=== PATIENT | female | born 1985 | race American Indian/Alaskan Native ===

== ENCOUNTER 2020-04-05 21:35 | Emergency (ER) | payer OTHER ==
[2020-04-05 22:17] VITALS: BP 140/91
[2020-04-06 00:19] LABS: Bilirubin,Urine NEG (Negative); Blood,Urine SM (Negative); Color,Urine Straw (Yellow); Mucus,Urine FEW /HPF; Protein,Urine <15 mg/dL mg/dL (Negative); Urobilinogen,Urine < 2.0 mg/dL (<2.0)
[2020-04-06 00:21] LABS: HCG Qualitative,Urine Negative (Negative)
--- NOTE | 2020-04-06 02:31 | Emergency Department Report ---
<CLEO BROCK - Last Filed: 04/06/20 06:02> ED Abdominal Pain HPI - General Chief Complaint: Abdominal Pain Stated Complaint: LOWER BACK PAIN/KIDNEY STONES Time Seen by Provider: 04/06/20 00:29 Source: patient Mode of arrival: Ambulatory Limitations: No Limitations - History of Present Illness Initial Comments: 34-year-old [place] female with a past medical history involving polycystic ovaries previous history of hemorrhoid presents emergency department complaining of a few day history of right-sided back pain. She states several months ago she was diagnosed with kidney stones in her left and right kidneys and a follow- up with a urologist and was post have a stone in her right kidney removed as it was trying to advance from the kidney however she has yet to get this procedure done she reports having some nausea but no vomiting no hematuria no hematemesis no hematochezia reports no fever, chills, sweats no chest pain no palpitations. Pain is fluctuant in nature sharp achy when present. MD Complaint: flank pain Location: R flank Radiation: none Migration to: no migration Consistency: constant Improves With: nothing Worsens With: nothing - Related Data Previous Rx's Medication Instructions Recorded Last Taken Type Ketorolac [Toradol] 10 mg PO Q6H PRN #15 tablet 02/18/18 Unknown Rx oxyCODONE /ACETAMINOPHEN [Percocet 1 - 2 tab PO Q6HR PRN #20 tablet 02/18/18 Unknown Rx 5/325] Ondansetron [Zofran ODT TAB] 8 mg PO Q8HR #20 tab.rapdis 04/06/20 Unknown Rx Sulfamethoxazole/Trimethoprim 1 each PO BID #20 tablet 04/06/20 Unknown Rx [Bactrim DS TAB] Tamsulosin [Flomax] 0.4 mg PO QDAY #14 cap 04/06/20 Unknown Rx traMADoL [Ultram] 50 mg PO Q6HR PRN #20 tablet 04/06/20 Unknown Rx Allergies Allergy/AdvReac Type Severity Reaction Status Date / Time No Known Allergies Allergy Verified 02/17/18 22:16 ED Review of Systems Comment: All other systems reviewed and negative ED Past Medical Hx - Past Medical History Previous Medical History?: Yes Hx Kidney Stones: Yes Additional medical history: Scoliosis. PCOS - Surgical History Past Surgical History?: Yes Additional Surgical History: Cervial polyps 2018, hemorrhoidectomy - Social History Smoking Status: Never Smoker Substance Use Type: None - Medications Home Medications: Home Medications Medication Instructions Recorded Confirmed Last Taken Type Ketorolac [Toradol] 10 mg PO Q6H PRN #15 tablet 02/18/18 Unknown Rx oxyCODONE /ACETAMINOPHEN [Percocet 1 - 2 tab PO Q6HR PRN #20 tablet 02/18/18 Unknown Rx 5/325] Ondansetron [Zofran ODT TAB] 8 mg PO Q8HR #20 tab.rapdis 04/06/20 Unknown Rx Sulfamethoxazole/Trimethoprim 1 each PO BID #20 tablet 04/06/20 Unknown Rx [Bactrim DS TAB] Tamsulosin [Flomax] 0.4 mg PO QDAY #14 cap 04/06/20 Unknown Rx traMADoL [Ultram] 50 mg PO Q6HR PRN #20 tablet 04/06/20 Unknown Rx ED Physical Exam - General Limitations: No Limitations General appearance: alert, in no apparent distress - Head Head exam: Present: atraumatic, normocephalic - Eye Eye exam: Present: normal appearance, PERRL, EOMI Pupils: Present: normal accommodation - ENT ENT exam: Present: normal exam, normal orophraynx, mucous membranes moist, TM's normal bilaterally - Neck Neck exam: Present: normal inspection, full ROM - Respiratory Respiratory exam: Present: normal lung sounds bilaterally. Absent: respiratory distress, wheezes, rales, chest wall tenderness, accessory muscle use - Cardiovascular Cardiovascular Exam: Present: regular rate, normal rhythm. Absent: systolic murmur, diastolic murmur, rubs, gallop - GI/Abdominal GI/Abdominal exam: Present: soft, normal bowel sounds. Absent: tenderness, g uarding, hyperactive bowel sounds, hypoactive bowel sounds - Extremities Exam Extremities exam: Present: normal inspection - Back Exam Back exam: Present: normal inspection, tenderness, CVA tenderness (R), CVA tenderness (L) - Neurological Exam Neurological exam: Present: alert, oriented X3, CN II-XII intact, normal gait - Psychiatric Psychiatric exam: Present: normal affect, normal mood. Absent: flat affect, manic, homicidal ideation - Skin Skin exam: Present: warm, dry, intact, normal color. Absent: rash ED Medical Decision Making - Lab Data Result diagrams: 04/06/20 02:51 04/06/20 02:51 Lab Results 04/05/20 04/06/20 04/06/20 Range/Units Unknown 02:51 02:51 WBC 7.0 (4.5-11.0) K/mm3 RBC 3.77 (3.65-5.03) M/mm3 Hgb 11.5 (10.1-14.3) gm/dl Hct 34.6 (30.3-42.9) % MCV 92 (79-97) fl MCH 31 (28-32) pg MCHC 33 (30-34) % RDW 15.0 (13.2-15.2) % Plt Count 253 (140-440) K/mm3 Lymph % (Auto) 25.3 (13.4-35.0) % [place] % (Auto) 8.6 H (0.0-7.3) % Eos % (Auto) 2.5 (0.0-4.3) % Baso % (Auto) 0.4 (0.0-1.8) % Lymph # (Auto) 1.8 (1.2-5.4) K/mm3 [place] # (Auto) 0.6 (0.0-0.8) K/mm3 Eos # (Auto) 0.2 (0.0-0.4) K/mm3 Baso # (Auto) 0.0 (0.0-0.1) K/mm3 Seg Neutrophils % 63.2 (40.0-70.0) % Seg Neutrophils # 4.4 (1.8-7.7) K/mm3 Sodium 137 (137-145) mmol/L Potassium 4.1 (3.6-5.0) mmol/L Chloride 103.4 (98-107) mmol/L Carbon Dioxide 25 (22-30) mmol/L Anion Gap 13 mmol/L BUN 12 (7-17) mg/dL Creatinine 1.1 (0.6-1.2) mg/dL Estimated GFR > 60 ml/min BUN/Creatinine Ratio 11 % Glucose 92 (65-100) mg/dL Calcium 8.9 (8.4-10.2) mg/dL Total Bilirubin 0.30 (0.1-1.2) mg/dL AST 18 (5-40) units/L ALT 11 (7-56) units/L Alkaline Phosphatase 76 (35-129) units/L Total Protein 6.9 (6.3-8.2) g/dL Albumin 4.1 (3.9-5) g/dL Albumin/Globulin Ratio 1.5 % Urine Color Straw (Yellow) Urine Turbidity Clear (Clear) Urine pH 6.0 (5.0-7.0) Ur Specific [place] 1.018 (1.003-1.030) Urine Protein <15 mg/dl (Negative) mg/dL Urine Glucose (UA) Neg (Negative) mg/dL Urine Ketones Neg (Negative) mg/dL Urine Blood Sm (Negative) Urine Nitrite Neg (Negative) Urine Bilirubin Neg (Negative) Urine Urobilinogen < 2.0 (<2.0) mg/dL Ur Leukocyte Esterase Neg (Negative) Urine WBC (Auto) 2.0 (0.0-6.0) /HPF Urine RBC (Auto) 10.0 (0.0-6.0) /HPF U Epithel Cells (Auto) 1.0 (0-13.0) /HPF Urine Mucus Few /HPF Urine HCG, Qual Negative (Negative) - Radiology Data Radiology results: report reviewed [place] [id number] Cat Scan Report Signed Patient: CHRIS LEUNG MR#: [id number] : 1985 Acct:[id number] Age/Sex: 34 / F ADM Date: 04/05/20 Loc: ED Attending Dr: Ordering Physician: ARI GUEVARA Date of Service: 04/06/20 Procedure(s): CT abdomen pelvis wo con Accession Number(s): [id number] cc: ARI GUEVARA CT ABDOMEN AND PELVIS WITHOUT CONTRAST HISTORY: right flank pain. COMPARISON: None. TECHNIQUE: CT images of the abdomen and pelvis were obtained without administration of intravenous contrast. All CT scans at this location are performed using CT dose reduction for ALARA by means of automated exposure control. FINDINGS: Lungs/bones: Lung bases are clear. There are degenerative changes in the spine and pelvis with no acute osseous abnormality identified. Abdomen/pelvis: There is a 5 mm stone in the distal right ureter on image #151 of series #2 with moderate right-sided hydronephrosis and inflammatory stranding tracking along the right ureter and about the right kidney. There is also nonobstructive nephrolithiasis in the left kidney with largest stone aggregate measuring 5 mm in the midpole region. The liver, gallbladder, spleen, pancreas, adrenals, and proximal GI tract appear unremarkable. Urinary bladder is unremarkable. Reproductive organs are likewise unremarkable. There is no significant pelvic free fluid and there is no acute colonic abnormality this patient with diverticulosis. The appendix is normal. IMPRESSION: 1. 5 mm distal right ureteral stone with moderate hydronephrosis. Signer Name: Femi Ugarte MD Signed: 04/06/2020 3:09 AM Workstation Name: [id number] Transcribed By: JW Dictated By: Femi Ugarte MD Electronically Authenticated By: Femi Ugarte MD Signed Date/Time: 04/06/20308 DD/ 6 TD/TT: - Medical Decision Making Clinically the patient presents with nephrolithasis. IV pain medications, antiemetics, and IV fluids were given. A CT Abdomen/Pelvis was obtained for concern for a possible obstructing kidney stone and to rule out other pathologic conditions. The CT confirmed revealed a stone at the distal right ureter with mild hydro-. The patient's labs were significant for XXX. With pain medication the patient improved significantly. The patient is referred to the on-call urologist for follow up and is discharged with oral narcotics for pain control, Flomax, antiemetics, and given the following return precautions: Fever > 100.5, pain not controlled with narcotics, vomiting or any other concerns and to strain the urine ED Disposition Clinical Impression: Calculus of distal right ureter Disposition: DC-01 TO HOME OR SELFCARE Is pt being admited?: No Does the pt Need Aspirin: No Condition: Stable Instructions: Low-Purine Eating Plan, Kidney Stones, Laser Therapy for Kidney Stones, Care After, Lithotripsy, Abdominal Pain (ED) Prescriptions: Sulfamethoxazole/Trimethoprim [Bactrim DS TAB] 1 each PO BID #20 tablet Tamsulosin [Flomax] 0.4 mg PO QDAY #14 cap traMADoL [Ultram] 50 mg PO Q6HR PRN #20 tablet PRN Reason: Pain Ondansetron [Zofran ODT TAB] 8 mg PO Q8HR #20 tab.rapdis Referrals: JOHN DELA CRUZ MD [Other] - 3-5 Days [facility] [Provider Group] - 3-5 Days <RADHIKA CRUZ - Last Filed: 04/08/20 20:24> ED Review of Systems ROS: Stated complaint: LOWER BACK PAIN/KIDNEY STONES Other details as noted in HPI ED Course Vital Signs 04/05/20 22:13 Temperature 98.0 F Pulse Rate 64 Respiratory 18 Rate Blood Pressure 140/91 O2 Sat by Pulse 95 Oximetry ED Medical Decision Making - Lab Data Result diagrams: 04/06/20 02:51 04/06/20 02:51 Critical care attestation.: If time is entered above; I have spent that time in minutes in the direct care of this critically ill patient, excluding procedure time. ED Disposition Is pt being admited?: No Does the pt Need Aspirin: No
[2020-04-06 03:12] LABS: Basophils % (Auto) 0.4 % (0.0-1.8); Eosinophils # (Auto) 0.2 K/mm3 (0.0-0.4); Eosinophils % (Auto) 2.5 % (0.0-4.3); Hematocrit 34.6 % (30.3-42.9); Hemoglobin 11.5 gm/dl (10.1-14.3); Lymphocytes # (Auto) 1.8 K/mm3 (1.2-5.4); Lymphocytes % (Auto) 25.3 % (13.4-35.0); Mean Corpuscular HGB Conc 33 % (30-34); Mean Corpuscular Volume 92 fl (79-97); Monocytes # (Auto) 0.6 K/mm3 (0.0-0.8); Monocytes % (Auto) 8.6 % (0.0-7.3); Platelet Count 253 K/mm3 (140-440); Red Blood Count 3.77 M/mm3 (3.65-5.03)
--- NOTE | 2020-04-06 03:14 | Cat Scan Report ---
CT ABDOMEN AND PELVIS WITHOUT CONTRAST HISTORY: right flank pain. COMPARISON: None. TECHNIQUE: CT images of the abdomen and pelvis were obtained without administration of intravenous co ntrast. All CT scans at this location are performed using CT dose reduction for ALARA by means of au tomated exposure control. FINDINGS: Lungs/bones: Lung bases are clear. There are degenerative changes in the spine and pelvis with no ac elsy osseous abnormality identified. Abdomen/pelvis: There is a 5 mm stone in the distal right ureter on image #151 of series #2 with mod erate right-sided hydronephrosis and inflammatory stranding tracking along the right ureter and about the right kidney. There is also nonobstructive nephrolithiasis in the left kidney with largest stone aggregate measuring 5 mm in the midpole region. The liver, gallbladder, spleen, pancreas, adrenals, and proximal GI tract appear unremarkable. Urinary bladder is unremarkable. Reproductive organs are likewise unremarkable. There is no significa nt pelvic free fluid and there is no acute colonic abnormality this patient with diverticulosis. The appendix is normal. IMPRESSION: 1. 5 mm distal right ureteral stone with moderate hydronephrosis. Signer Name: Femi Ugarte MD Signed: 04/06/2020 3:09 AM Workstation Name: [email or web address]
[2020-04-06 03:31] LABS: Alanine Aminotransferase 11 units/L (7-56); Albumin 4.1 g/dL (3.9-5); BUN/Creatinine Ratio 11; Blood Urea Nitrogen 12 mg/dL (7-17); Calcium 8.9 mg/dL (8.4-10.2); Hemolysis Index 4
[2020-04-06] MEDS ORDERED: LIDOCAINE-MPF (1%) 10 MG/1 ML VIAL 5 ML INFILTRATI ONE (05:36)
== END 2020-04-06 06:14 | disposition home or self-care (01) ==
LOC: ED 21:35
DX: N20.1 Calculus of ureter (principal); Z79.899 Other long term (current) drug therapy; Z98.890 Other specified postprocedural states
CPT/HCPCS: 36415; 74176; 80053; 81001; 81025; 85025; 96372; 99284; J0696

== ENCOUNTER 2020-09-17 13:58 | Emergency (ER) | payer OTHER ==
[2020-09-17] MEDS ORDERED: ASPIRIN 325 MG TAB PO ONE (14:02)
--- NOTE | 2020-09-17 14:30 | XRay Report ---
CHEST 2 VIEWS INDICATION / CLINICAL INFORMATION: chest pain. COMPARISON: None available. FINDINGS: SUPPORT DEVICES: None. HEART / MEDIASTINUM: No significant abnormality. LUNGS / PLEURA: No significant pulmonary or pleural abnormality. No pneumothorax. ADDITIONAL FINDINGS: Mild to moderate S-shaped thoracic scoliosis. IMPRESSION: 1. No acute findings. Signer Name: Scott Bernal MD Signed: 09/17/2020 2:26 PM Workstation Name: [email or web address]
[2020-09-17 14:50] LABS: Basophils # (Auto) 0.1 K/mm3 (0.0-0.1); Basophils % (Auto) 1.3 % (0.0-1.8); Eosinophils # (Auto) 0.2 K/mm3 (0.0-0.4); Eosinophils % (Auto) 2.8 % (0.0-4.3); Hematocrit 37.3 % (30.3-42.9); Hemoglobin 12.5 gm/dl (10.1-14.3); Lymphocytes # (Auto) 1.6 K/mm3 (1.2-5.4); Lymphocytes % (Auto) 29.6 % (13.4-35.0); Mean Corpuscular HGB Conc 34 % (30-34); Mean Corpuscular Volume 92 fl (79-97); Monocytes # (Auto) 0.3 K/mm3 (0.0-0.8); Platelet Count 237 K/mm3 (140-440); Red Blood Count 4.05 M/mm3 (3.65-5.03); Red Cell Distribution Width 15.2 % (13.2-15.2)
[2020-09-17 15:13] LABS: Alanine Aminotransferase 10 units/L (7-56); Albumin 3.8 g/dL (3.9-5); BUN/Creatinine Ratio 11; Blood Urea Nitrogen 12 mg/dL (7-17); Calcium 8.8 mg/dL (8.4-10.2); Hemolysis Index 4
[2020-09-17] MEDS ORDERED: ACETAMINOPHEN 325 MG TAB PO ONE (15:40)
--- NOTE | 2020-09-17 15:43 | Event Note ---
ED Screening Note Date of service: 09/17/20 Time: 15:43 ED Screening Note: 35-year-old female with a past medical history of hypertension, hyperlipidemia, anxiety and depression presents to the ER today with complaints of chest pain. Patient states that her symptoms started abruptly about 1 hour prior to arrival. She states she was also hyperventilating. She was also having tingling in her hands and feet and in her face and was nauseous. She states that since has been in the ER, she is now having right-sided chest pain. She reports financial stress lately. Reports a history of marijuana use but denies any other illicit drug use. She states she is a social drinker. She reports a 6-hour drive back from [place] about a week ago. She denies any calf pain, lower extremity swelling, abdominal pain, cough, fever, chills or urinary symptoms. She denies any history of coronary disease and she denies ever having a stress test and she denies history of DVT or PE. She denies any lung disease This initial assessment/diagnostic orders/clinical plan/treatment(s) is/are subject to change based on patients health status, clinical progression and re- assessment by fellow clinical providers in the ED. Further treatment and workup at subsequent clinical providers discretion. Patient/guardian urged not to elope from the ED as their condition may be serious if not clinically assessed and managed. Initial orders include: Cardiac work-up
[2020-09-17] MEDS ORDERED: hydrOXYzine HCL 25 MG TAB PO ONE (17:57)
--- NOTE | 2020-09-17 18:21 | Emergency Department Report ---
ED General Adult HPI - General Chief complaint: Chest Pain Stated complaint: CHEST PAIN Time Seen by Provider: 09/17/20 15:34 Source: patient Mode of arrival: Ambulatory Limitations: No Limitations - History of Present Illness Initial comments: Patient is a 35-year-old female presents emergency room with complaints of a panic attack that occurred today. Patient states that her symptoms were chest pain to the midsternal and right chest which was described as a constriction, tingling all over, feeling like she was hyperventilating. She states that she does have a history of anxiety and is prescribed a medication that she takes as needed but is not sure what the medication is called. She states that she last took it last week. She is not currently seeing anyone for her anxiety. She denies any SI or HI. Patient states that she feels much better currently. She denies any fever, nausea, vomiting, diarrhea, cough, shortness of breath, leg sw elling, pleuritic chest pain, hemoptysis. She has a past medical history of nephrolithiasis and hypertension. No allergies to medications. Last menstrual cycle 08/16/2020. Severity scale (0 -10): 9 - Related Data Previous Rx's Medication Instructions Recorded Last Taken Type Ketorolac [Toradol] 10 mg PO Q6H PRN #15 tablet 02/18/18 Unknown Rx oxyCODONE /ACETAMINOPHEN [Percocet 1 - 2 tab PO Q6HR PRN #20 tablet 02/18/18 U nknown Rx 5/325] Ondansetron [Zofran ODT TAB] 8 mg PO Q8HR #20 tab.rapdis 04/06/20 Unknown Rx Sulfamethoxazole/Trimethoprim 1 each PO BID #20 tablet 04/06/20 Unknown Rx [Bactrim DS TAB] Tamsulosin [Flomax] 0.4 mg PO QDAY #14 cap 04/06/20 Unknown Rx traMADoL [Ultram] 50 mg PO Q6HR PRN #20 tablet 04/06/20 Unknown Rx Allergies Allergy/AdvReac Type Severity Reaction Status Date / Time No Known Allergies Allergy Verified 09/17/20 14:01 ED Review of Systems ROS: Stated complaint: CHEST PAIN Other details as noted in HPI Comment: All other systems reviewed and negative ED Past Medical Hx - Past Medical History Hx Kidney Stones: Yes Additional medical history: Scoliosis. PCOS - Surgical History Additional Surgical History: Cervial polyps 2018, hemorrhoidectomy - Social History Smoking Status: Never Smoker Substance Use Type: None - Medications Home Medications: Home Medications Medication Instructions Recorded Confirmed Last Taken Type Ketorolac [Toradol] 10 mg PO Q6H PRN #15 tablet 02/18/18 Unknown Rx oxyCODONE /ACETAMINOPHEN [Percocet 1 - 2 tab PO Q6HR PRN #20 tablet 02/18/18 Unknown Rx 5/325] Ondansetron [Zofran ODT TAB] 8 mg PO Q8HR #20 tab.rapdis 04/06/20 Unknown Rx Sulfamethoxazole/Trimethoprim 1 each PO BID #20 tablet 04/06/20 Unknown Rx [Bactrim DS TAB] Tamsulosin [Flomax] 0.4 mg PO QDAY #14 cap 04/06/20 Unknown Rx traMADoL [Ultram] 50 mg PO Q6HR PRN #20 tablet 04/06/20 Unknown Rx ED Physical Exam - General Limitations: No Limitations General appearance: alert, anxious (mildly) - Head Head exam: Present: atraumatic, normocephalic - Eye Eye exam: Present: normal appearance - ENT ENT exam: Present: mucous membranes moist - Respiratory Respiratory exam: Present: normal lung sounds bilaterally. Absent: respiratory distress, wheezes, rales, rhonchi, stridor, chest wall tenderness, accessory muscle use, decreased breath sounds, prolonged expiratory - Cardiovascular Cardiovascular Exam: Present: regular rate, normal rhythm, normal heart sounds. Absent: systolic murmur, diastolic murmur, rubs, gallop - Neurological Exam Neurological exam: Present: alert, oriented X3 - Psychiatric Psychiatric exam: Present: anxious (mildly). Absent: homicidal ideation, suicidal ideation - Skin Skin exam: Present: warm, dry, intact ED Course Vital Signs 09/17/20 09/17/20 09/17/20 13:59 16:47 17:51 Temperature 98 F Pulse Rate 93 H 65 Respiratory 30 H 18 16 Rate Blood Pressure 187/110 Blood Pressure 146/92 [Left] O2 Sat by Pulse 97 100 Oximetry 09/17/20 18:52 Temperature Pulse Rate 68 Respiratory 18 Rate Blood Pressure Blood Pressure 124/68 [Left] O2 Sat by Pulse 99 Oximetry ED Medical Decision Making - Lab Data Result diagrams: 09/17/20 14:24 09/17/20 14:24 Lab Results 09/17/20 09/17/20 09/17/20 Range/Units 14:24 14:24 15:44 WBC 5.4 (4.5-11.0) K/mm3 RBC 4.05 (3.65-5.03) M/mm3 Hgb 12.5 (10.1-14.3) gm/dl Hct 37.3 (30.3-42.9) % MCV 92 (79-97) fl MCH 31 (28-32) pg MCHC 34 (30-34) % RDW 15.2 (13.2-15.2) % Plt Count 237 (140-440) K/mm3 Lymph % (Auto) 29.6 (13.4-35.0) % [place] % (Auto) 6.0 (0.0-7.3) % Eos % (Auto) 2.8 (0.0-4.3) % Baso % (Auto) 1.3 (0.0-1.8) % Lymph # (Auto) 1.6 (1.2-5.4) K/mm3 [place] # (Auto) 0.3 (0.0-0.8) K/mm3 Eos # (Auto) 0.2 (0.0-0.4) K/mm3 Baso # (Auto) 0.1 (0.0-0.1) K/mm3 Seg Neutrophils % 60.3 (40.0-70.0) % Seg Neutrophils # 3.3 (1.8-7.7) K/mm3 Sodium 136 L (137-145) mmol/L Potassium 3.7 (3.6-5.0) mmol/L Chloride 103.6 (98-107) mmol/L Carbon Dioxide 20 L (22-30) mmol/L Anion Gap 16 mmol/L BUN 12 (7-17) mg/dL Creatinine 1.1 (0.6-1.2) mg/dL Estimated GFR > 60 ml/min BUN/Creatinine Ratio 11 % Glucose 108 H (65-100) mg/dL Calcium 8.8 (8.4-10.2) mg/dL Total Bilirubin 0.30 (0.1-1.2) mg/dL AST 15 (5-40) units/L ALT 10 (7-56) units/L Alkaline Phosphatase 75 (35-129) units/L Troponin T < 0.010 (0.00-0.029) ng/mL Total Protein 7.5 (6.3-8.2) g/dL Albumin 3.8 L (3.9-5) g/dL Albumin/Globulin Ratio 1.0 % HCG, Qual Negative (Negative) 09/17/20 Range/Units 16:37 WBC (4.5-11.0) K/mm3 RBC (3.65-5.03) M/mm3 Hgb (10.1-14.3) gm/dl Hct (30.3-42.9) % MCV (79-97) fl MCH (28-32) pg MCHC (30-34) % RDW (13.2-15.2) % Plt Count (140-440) K/mm3 Lymph % (Auto) (13.4-35.0) % [place] % (Auto) (0.0-7.3) % Eos % (Auto) (0.0-4.3) % Baso % (Auto) (0.0-1.8) % Lymph # (Auto) (1.2-5.4) K/mm3 [place] # (Auto) (0.0-0.8) K/mm3 Eos # (Auto) (0.0-0.4) K/mm3 Baso # (Auto) (0.0-0.1) K/mm3 Seg Neutrophils % (40.0-70.0) % Seg Neutrophils # (1.8-7.7) K/mm3 Sodium (137-145) mmol/L Potassium (3.6-5.0) mmol/L Chloride (98-107) mmol/L Carbon Dioxide (22-30) mmol/L Anion Gap mmol/L BUN (7-17) mg/dL Creatinine (0.6-1.2) mg/dL Estimated GFR ml/min BUN/Creatinine Ratio % Glucose (65-100) mg/dL Calcium (8.4-10.2) mg/dL Total Bilirubin (0.1-1.2) mg/dL AST (5-40) units/L ALT (7-56) units/L Alkaline Phosphatase (35-129) units/L Troponin T < 0.010 (0.00-0.029) ng/mL Total Protein (6.3-8.2) g/dL Albumin (3.9-5) g/dL Albumin/Globulin Ratio % HCG, Qual (Negative) Vital Signs 09/17/20 09/17/20 09/17/20 13:59 16:47 17:51 Temperature 98 F Pulse Rate 93 H 65 Respiratory 30 H 18 16 Rate Blood Pressure 187/110 Blood Pressure 146/92 [Left] O2 Sat by Pulse 97 100 Oximetry Vital Signs 09/17/20 09/17/20 09/17/20 13:59 16:47 17:51 Temperature 98 F Pulse Rate 93 H 65 Respiratory 30 H 18 16 Rate Blood Pressure 187/110 Blood Pressure 146/92 [Left] O2 Sat by Pulse 97 100 Oximetry 09/17/20 18:52 Temperature Pulse Rate 68 Respiratory 18 Rate Blood Pressure Blood Pressure 124/68 [Left] O2 Sat by Pulse 99 Oximetry - EKG Data EKG shows normal: sinus rhythm, axis, intervals, QRS complexes, ST-T waves Rate: normal - Radiology Data Radiology results: report reviewed Ordering Physician: ED MD TAVO Date of Service: 09/17/20 Procedure(s): XR chest routine 2V Accession Number(s): [id number] cc: ED MD TAVO Fluoro Time In Minutes: CHEST 2 VIEWS INDICATION / CLINICAL INFORMATION: chest pain. COMPARISON: None available. FINDINGS: SUPPORT DEVICES: None. HEART / MEDIASTINUM: No significant abnormality. LUNGS / PLEURA: No significant pulmonary or pleural abnormality. No pneumothorax. ADDITIONAL FINDINGS: Mild to moderate S-shaped thoracic scoliosis. IMPRESSION: 1. No acute findings. Signer Name: Scott Bernal MD Signed: 09/17/2020 2:26 PM Workstation Name: [id number] Transcribed By: DT Dictated By: Andrei Bernal MD Electronically Authenticated By: Andrei Bernal MD Signed Date/Time: 09/17/20 1426 DD/ 1425 TD/TT: Print - Medical Decision Making Patient is a 35-year-old female presents emergency room with complaints of a panic attack that occurred today. Patient states that her symptoms were chest pain to the midsternal and right chest which was described as a constriction, tingling all over, feeling like she was hyperventilating. She states that she does have a history of anxiety and is prescribed a medication that she takes as needed but is not sure what the medication is called. She states that she last took it last week. She is not currently seeing anyone for her anxiety. She denies any SI or HI. Patient states that she feels much better currently. She denies any fever, nausea, vomiting, diarrhea, cough, shortness of breath, leg swelling, pleuritic chest pain, hemoptysis. She has a past medical history of nephrolithiasis and hypertension. No allergies to medications. Last menstrual cycle 08/16/2020. Initial vitals with tachypnea and elevated blood pressure which improved significantly on repeat. Labs are normal. Troponin is negative x2. Chest x-ray 1. No acute findings. Heart score is 1, chest pain is atypical, do not suspect ACS. PERC criteria negative for PE. Patient given hydroxyzine while in the emergency department symptoms improved. Advised patient Please follow-up with your primary care doctor. Please follow-up with outpatient [facility]. Please practice healthy coping mechanisms in order to help with your anxiety such as meditation, watching videos, exercise, taking a walk, etc. Return to emergency room for new or worsening symptoms. Critical care attestation.: If time is entered above; I have spent that time in minutes in the direct care of this critically ill patient, excluding procedure time. ED Disposition Clinical Impression: Panic attack, Atypical chest pain, Anxiety Disposition: DC-01 TO HOME OR SELFCARE Is pt being admited?: No Does the pt Need Aspirin: No Condition: Stable Instructions: Managing Anxiety, Adult Additional Instructions: Please follow-up with your primary care doctor. Please follow-up with outpatient mental health. Please practice healthy coping mechanisms in order to help with your anxiety such as meditation, watching videos, exercise, taking a walk, etc. Return to emergency room for new or worsening symptoms. Referrals: your, primary care doctor [Other] - 2-3 Days [facility] [Outside] - 2-3 Days Time of Disposition: 18:20 Print Language: [place] HEART Score - HEART Score History: Slightly suspicious EKG: Normal Age: < 45 Risk factors: 1-2 risk factors Troponin: Troponin T < 0.010 ng/mL (0.00-0.029) 09/17/20 16:37 Troponin: < normal limit HEART Score: 1
[2020-09-17 18:52] VITALS: BP 124/68
--- NOTE | 2020-09-19 11:49 | Electrocardiograph Report ---
[facility] Test Date: 2020-09-17 Test Time: 14:03:48 Pat Name: CHRIS LEUNG Department: Room: Gender: F Internal Communications Specialist: ARLENE : 1985 Requested By: ED DOC Order Number: [id number] Reading MD: Ingrid Castaneda Measurements Intervals [place] Rate: 88 P: 36 WV: 169 QRS: 4 QRSD: 86 T: 24 QT: 357 QTc: 432 Interpretive Statements Sinus rhythm No previous ECG available for comparison Electronically Signed On 09-19-2020 11:48:56 EDT by Ingrid Castaneda
== END 2020-09-17 18:52 | disposition home or self-care (01) ==
LOC: ED 13:58
DX: F41.0 Panic disorder [episodic paroxysmal anxiety] (principal); F41.9 Anxiety disorder, unspecified; R07.89 Other chest pain; Z90.89 Acquired absence of other organs; Z98.890 Other specified postprocedural states; Z79.899 Other long term (current) drug therapy
CPT/HCPCS: 36415; 71046; 80053; 84484; 84703; 85025; 93005